=== PATIENT | female | born 1945 | race Caucasian/White ===

== ENCOUNTER 2024-03-27 09:41 | Day surgery (SDC) | payer MEDICARE, BC ==
[~2024-03-27 09:41] MED LIST: LIDOCAINE 1% (10MG/ML) FOR IV START INTRADERMA PRN; MIDAZOLAM 2 MG/2 ML VIAL IV PRN
[2024-03-27 10:48] VITALS: RESP 16; TEMP 97.5
[2024-03-27] MEDS: LACTATED RINGERS 1,000 ML IV SCH (10:59)
[2024-03-27] MEDS: LACTATED RINGERS 1,000 ML IV ONE (10:59)
[2024-03-27] MEDS ORDERED: PROPOFOL 10 MG/ML 20 ML VIAL IV ONE (11:41)
--- NOTE | 2024-03-27 12:09 | P.PCN ---
Date of Procedure: 03/27/24 Procedure(s) Performed: BRIEF HISTORY: Patient is a 78-year-old pleasant white female scheduled for an elective colonoscopy as a part of evaluation of change in bowel habits for the last several months duration. She has been having loose mushy stools daily. No blood in the stool. PROCEDURE PERFORMED: Colonoscopy with biopsy. PREOPERATIVE DIAGNOSIS: Change in bowel habits. IV sedation per Anesthesia. PROCEDURE: After informed consent was obtained, the patient, was brought into the endoscopy unit. IV sedation was administered by Anesthesia under continuous monitoring. Digital rectal examination was normal. Initially the Olympus CF-160 flexible video colonoscope was then inserted in the rectum, gradually advanced into the cecum without any difficulty. Careful examination was performed as the scope was gradually being withdrawn. Ileocecal valve and the appendiceal orifice were visualized and appeared normal. Prep was excellent. Mucosa of the cecum, ascending colon, transverse colon, descending colon, sigmoid colon, and rectum appeared normal. Random biopsies were done from the ascending and descending colon to rule out microscopic/collagenous colitis.. Retroflexion was performed in the rectum and no lesions were seen. The patient tolerated the procedure well. IMPRESSION: Normal-appearing colon from rectum to cecum with no evidence of colorectal neoplasia. RECOMMENDATIONS: Findings of this examination were discussed with the patient as well as her family. She was advised to follow-up with the biopsy results. She will be seen in the office in 2 weeks..
[2024-03-27 12:29] VITALS: BP 147/67; PULSE 62
== END 2024-03-27 12:43 | disposition home or self-care (01) ==
LOC: ORWHC2ENDO 09:41
PROVIDERS: ATTEND Internal Medicine Gastroenterology
DX: R19.4 Change in bowel habit (principal); I48.91 Unspecified atrial fibrillation; G47.33 Obstructive sleep apnea (adult) (pediatric); Z79.01 Long term (current) use of anticoagulants; Z79.899 Other long term (current) drug therapy
CPT/HCPCS: 45380; J2704; 88305